=== PATIENT | male | born 1995 | race Caucasian/White ===

== ENCOUNTER 2017-12-20 13:56 | Emergency (ER) | payer OTHER ==
[2017-12-20 14:00] VITALS: BP 135/62; PULSE 60; TEMP 98.5; BMI 23.5
--- NOTE | 2017-12-20 16:16 | PDOC ---
History of Present Illness - General Chief Complaint: Constipation Stated Complaint: CONSTIPATION Time Seen by Provider: 12/20/17 14:53 History Source: Patient Past History - Past Medical History Allergies/Adverse Reactions: Allergies Allergy/AdvReac Type Severity Reaction Status Date / Time sulfamethoxazole Allergy Verified 12/20/17 13:57 [From Bactrim] trimethoprim [From Bactrim] Allergy Verified 12/20/17 13:57 Home Medications: Ambulatory Orders Polyethylene Glycol 3350 [Miralax (For Daily Use) -] 17 gm PO DAILY #1 bottle COPD: No - Suicide/Smoking/Psychosocial Hx Smoking History: Never smoked Hx Alcohol Use: No Drug/Substance Use Hx: No Substance Use Type: None *Physical Exam - Vital Signs Last Vital Signs Temp Pulse Resp BP Pulse Ox 98.5 F 60 18 135/62 100 12/20/17 13:58 12/20/17 13:58 12/20/17 13:58 12/20/17 13:58 12/20/17 13:58 *DC/Admit/Observation/Transfer Diagnosis at time of Disposition: Constipation Qualifiers: Constipation type: unspecified constipation type Qualified Code(s): K59.00 - Constipation, unspecified - Discharge Dispostion Disposition: HOME Condition at time of disposition: Stable Decision to Admit order: No - Referrals Referrals: Miguel Angel Kohli MD [Staff Physician] - - Patient Instructions Printed Discharge Instructions: DI for Constipation Additional Instructions: Fluids, High fiber vegetables, fruits diet Miralax every day one cup every day with lots of water Ifany more symptoms follow up with electroencephalogram technologist - Post Discharge Activity
[2017-12-20] MEDS ORDERED: MAGNESIUM CITRATE 300 ML BOTTLE PO ONE (16:38)
[2017-12-20] MEDS ORDERED: MAGNESIUM CITRATE 300 ML BOTTLE ONE (16:45)
== END 2017-12-20 16:50 | disposition home or self-care (01) ==
LOC: FER 13:56
DX: K59.00 Constipation, unspecified (principal)
CPT/HCPCS: 36415; 82272; 99282-25